=== PATIENT | female | born 1990 | race Caucasian/White ===

== ENCOUNTER 2019-01-12 06:37 | Emergency (ER) | payer MEDICARE, MEDICAID ==
[~2019-01-12] VITALS: Ht 170.2 cm; Wt 128.4 kg
[2019-01-12] MEDS ORDERED: PERCOCET 7.5-31 EAC1 PO (06:49)
[2019-01-12] MEDS ORDERED: CIPRO HC OTIC S10 ML OTIC (06:49)
[2019-01-12 07:10] VITALS: BP 140/80
== END 2019-01-12 07:10 | disposition home or self-care (01) ==
LOC: M.ERS 06:37
DX: S00.412A Abrasion of left ear, initial encounter (principal); Z88.6 Allergy status to analgesic agent; X58.XXXA Exposure to other specified factors, initial encounter; Y93.89 Activity, other specified; Y92.89 Other specified places as the place of occurrence of the external cause; Y99.8 Other external cause status

== ENCOUNTER 2019-05-01 19:52 | Emergency (ER) | payer MEDICARE, MEDICAID ==
[~2019-05-01] VITALS: Ht 160 cm; Wt 117.9 kg
[~2019-05-01 19:52] MED LIST: CIPRO HC OTIC S10 ML OTIC; PERCOCET 7.5-31 EAC1 PO
[2019-05-01] MEDS ORDERED: SOMA350 MG PO (20:14)
[2019-05-01] MEDS ORDERED: KLONOPIN1 MG PO (20:15)
[2019-05-01] MEDS ORDERED: LYRICA 50 MG50 MG PO (21:31)
[2019-05-01 21:38] VITALS: BP 145/75
== END 2019-05-01 21:39 | disposition home or self-care (01) ==
LOC: M.ERS 19:52
DX: M25.551 Pain in right hip (principal); G40.89 Other seizures; F17.210 Nicotine dependence, cigarettes, uncomplicated; Z88.6 Allergy status to analgesic agent

== ENCOUNTER 2019-08-06 10:39 | Emergency (ER) | payer MEDICARE, MEDICAID ==
[~2019-08-06] VITALS: Ht 160 cm; Wt 111.1 kg
[~2019-08-06 10:39] MED LIST changes: +KLONOPIN1 MG PO; +LYRICA 50 MG50 MG PO; +SOMA350 MG PO
[2019-08-06 10:59] VITALS: BP 136/76
== END 2019-08-06 10:59 | disposition left against medical advice (07) ==
LOC: M.ERS 10:39
DX: R53.1 Weakness (principal); F17.210 Nicotine dependence, cigarettes, uncomplicated; Z88.6 Allergy status to analgesic agent

== ENCOUNTER 2019-08-16 20:37 | Emergency (ER) | payer MEDICARE, MEDICAID ==
[~2019-08-16] VITALS: Ht 160 cm; Wt 108.9 kg
[2019-08-16] MEDS ORDERED: NORCO 5-325 TA1 EAC1 PO (22:01)
[2019-08-16 22:10] VITALS: BP 135/70
== END 2019-08-16 22:11 | disposition home or self-care (01) ==
LOC: M.ERS 20:37
DX: S00.03XA Contusion of scalp, initial encounter (principal); S70.01XA Contusion of right hip, initial encounter; E28.2 Polycystic ovarian syndrome; Z88.6 Allergy status to analgesic agent; Z88.8 Allergy status to other drugs, medicaments and biological substances; W18.39XA Other fall on same level, initial encounter; Y93.89 Activity, other specified; Y92.511 Restaurant or cafe as the place of occurrence of the external cause; Y99.8 Other external cause status

== ENCOUNTER 2019-09-19 13:24 | Emergency (ER) | payer MEDICARE, MEDICAID ==
[~2019-09-19] VITALS: Ht 160 cm; Wt 104.3 kg
[~2019-09-19 13:24] MED LIST changes: +NORCO 5-325 TA1 EAC1 PO
[2019-09-19 14:07] LABS: ABSOLUTE BASOPHILS 0.1 thou/uL (0.0-0.2); ABSOLUTE EOSINOPHILS 0.2 thou/uL (0.0-0.7); ABSOLUTE LYMPHOCYTES 2.4 thou/uL (0.8-5.3); ABSOLUTE MONOCYTES 0.5 thou/uL (0.0-1.2); ABSOLUTE NEUTROPHILS 4.9 thou/uL (1.6-8.1); BASOPHILS 0.8 %; EOSINOPHILS 2.4 %; HEMATOCRIT 39.6 % (37.0-47.0); HEMOGLOBIN 13.3 gm/dL (12.0-15.0); LYMPHOCYTES 30.1 %; MCH 25.8 pg (26.0-34.0); MCHC 33.5 g/dL (28.0-37.0); MONOCYTES 6.1 %; MPV 7.1 fl. (7.2-11.1); NUCLEATED RBCS 0 /100WBC; PLATELET COUNT* 255 thou/uL (150-400); POLYS 60.6 %; RBC 5.15 mil/uL (4.20-5.00); RDW-CV 15.6 % (10.5-14.5); WBC 8.1 thou/uL (4.0-11.0)
[2019-09-19 14:14] LABS: CALCIUM 8.5 mg/dL (8.5-10.1); CREATININE 0.7 mg/dL (0.6-1.3); POTASSIUM 3.5 mmol/L (3.5-5.1)
[2019-09-19 14:19] LABS: ALBUMIN 3.4 g/dL (3.4-5.0); TOTAL BILIRUBIN 0.4 mg/dL (<0.1-1.0); TOTAL PROTEIN 7.3 g/dL (6.4-8.2)
[2019-09-19 15:53] LABS: URINE BILIRUBIN NEGATIVE (Negative); URINE BLOOD NEGATIVE (Negative); URINE CLARITY CLEAR; URINE COLOR YELLOW; URINE GLUCOSE-RANDOM NEGATIVE (Negative); URINE KETONES 1+ (Negative); URINE LEUKOCYTES-REFLEX NEGATIVE (Negative); URINE NITRITE-REFLEX NEGATIVE (Negative); URINE PROTEIN NEGATIVE (Negative); URINE SPECIFIC GRAVITY 1.025 (1.005-1.030); URINE UROBILINOGEN 0.2 E.U./dl (0.2-1.0)
[2019-09-19] MEDS ORDERED: ONDANSETRON HCL4 M2 PO (16:05)
[2019-09-19] MEDS ORDERED: NORCO 5-325 TA1 EAC1 PO (16:05)
[2019-09-19] MEDS ORDERED: AUGMENTIN 875-1 EACH PO (16:05)
[2019-09-19 16:30] VITALS: BP 124/90
== END 2019-09-19 16:30 | disposition home or self-care (01) ==
LOC: M.ERS 13:24
PROVIDERS: Nurse Practitioner Family
DX: S80.01XA Contusion of right knee, initial encounter (principal); H66.92 Otitis media, unspecified, left ear; B34.9 Viral infection, unspecified; R42 Dizziness and giddiness; R51 Headache; R19.7 Diarrhea, unspecified; F17.210 Nicotine dependence, cigarettes, uncomplicated; Z88.6 Allergy status to analgesic agent; Z88.5 Allergy status to narcotic agent; W18.30XA Fall on same level, unspecified, initial encounter; Y93.89 Activity, other specified; Y92.89 Other specified places as the place of occurrence of the external cause; Y99.8 Other external cause status

== ENCOUNTER 2019-09-27 01:41 | Emergency (ER) | payer MEDICARE, MEDICAID ==
[~2019-09-27] VITALS: Ht 160 cm; Wt 104.3 kg
[~2019-09-27 01:41] MED LIST changes: +AUGMENTIN 875-1 EACH PO; +ONDANSETRON HCL4 M2 PO
[2019-09-27] MEDS ORDERED: TRAZODONE HCL50 MG PO (01:51)
[2019-09-27] MEDS ORDERED: MINOCYCLINE HC100 M2 PO (02:37)
[2019-09-27 02:45] VITALS: BP 120/66
== END 2019-09-27 02:46 | disposition home or self-care (01) ==
LOC: M.ERS 01:41
DX: L72.3 Sebaceous cyst (principal); E28.2 Polycystic ovarian syndrome; F17.210 Nicotine dependence, cigarettes, uncomplicated; Z88.6 Allergy status to analgesic agent; Z88.8 Allergy status to other drugs, medicaments and biological substances

== ENCOUNTER 2019-12-06 19:34 | Emergency (ER) | payer OTHER, MEDICARE, MEDICAID ==
[~2019-12-06] VITALS: Ht 160 cm; Wt 108.9 kg
[~2019-12-06 19:34] MED LIST changes: +MINOCYCLINE HC100 M2 PO; +TRAZODONE HCL50 MG PO
[2019-12-06] MEDS ORDERED: KLONOPIN (19:44)
[2019-12-06] MEDS ORDERED: SOMA (19:45)
[2019-12-06] MEDS ORDERED: NORCO 5-325 TA1 EAC2 PO (21:36)
[2019-12-06 22:05] VITALS: BP 131/70
== END 2019-12-06 22:06 | disposition home or self-care (01) ==
LOC: M.ERS 19:34
DX: S16.1XXA Strain of muscle, fascia and tendon at neck level, initial encounter (principal); S29.019A Strain of muscle and tendon of unspecified wall of thorax, initial encounter; Z98.890 Other specified postprocedural states; Z79.899 Other long term (current) drug therapy; Z88.8 Allergy status to other drugs, medicaments and biological substances; V89.2XXA Person injured in unspecified motor-vehicle accident, traffic, initial encounter; Y93.I9 Activity, other involving external motion; Y92.488 Other paved roadways as the place of occurrence of the external cause; Y99.8 Other external cause status

== ENCOUNTER 2020-03-13 18:53 | Emergency (ER) | payer OTHER, MEDICARE, MEDICAID ==
[~2020-03-13] VITALS: Ht 160 cm; Wt 108.0 kg
[~2020-03-13 18:53] MED LIST changes: +KLONOPIN; +NORCO 5-325 TA1 EAC2 PO; +SOMA
[2020-03-13 19:51] LABS: INFLUENZA A ANTIGEN Negative (Negative); INFLUENZA B ANTIGEN Negative (Negative)
[2020-03-13] MEDS ORDERED: VENTOLIN HFA 1818 GM INH (20:49)
[2020-03-13] MEDS ORDERED: ZOFRAN ODT4 MG SUBLING (20:49)
[2020-03-13] MEDS ORDERED: ZPAK PO (20:49)
[2020-03-13] MEDS ORDERED: PREDNISONE 20 M20 M1 PO (20:49)
[2020-03-13 21:12] VITALS: BP 129/81
== END 2020-03-13 21:12 | disposition home or self-care (01) ==
LOC: M.ERS 18:53
PROVIDERS: Nurse Practitioner Family
DX: B34.9 Viral infection, unspecified (principal); Z20.828 Contact with and (suspected) exposure to other viral communicable diseases; Z90.89 Acquired absence of other organs; Z88.6 Allergy status to analgesic agent

== ENCOUNTER 2020-06-05 09:45 | Emergency (ER) | payer MEDICARE, MEDICAID ==
[~2020-06-05] VITALS: Ht 160 cm; Wt 108.9 kg
[~2020-06-05 09:45] MED LIST changes: +PREDNISONE 20 M20 M1 PO; +VENTOLIN HFA 1818 GM INH; +ZOFRAN ODT4 MG SUBLING; +ZPAK PO
[2020-06-05] MEDS ORDERED: HYDROCODON-ACE1 EAC7 PO (10:48)
[2020-06-05] MEDS ORDERED: BACTRIM DS TAB1 EAC1 PO (10:48)
[2020-06-05 11:26] VITALS: BP 135/68
== END 2020-06-05 11:28 | disposition home or self-care (01) ==
LOC: M.ERS 09:45
DX: L02.416 Cutaneous abscess of left lower limb (principal); M19.90 Unspecified osteoarthritis, unspecified site; F17.210 Nicotine dependence, cigarettes, uncomplicated; Z98.890 Other specified postprocedural states; Z90.89 Acquired absence of other organs; Z79.899 Other long term (current) drug therapy; Z88.8 Allergy status to other drugs, medicaments and biological substances; Z88.6 Allergy status to analgesic agent